=== PATIENT | male | born 1985 | race Caucasian/White ===

== ENCOUNTER 2019-03-07 11:18 | Emergency (ER) | payer MEDICAID ==
[~2019-03-07] VITALS: Ht 172.7 cm; Wt 64.9 kg
[2019-03-07 11:18] VITALS: BP 115/65
--- NOTE | 2019-03-07 11:18 | NUR ---
Pt [facility], placed in bed 11.
--- NOTE | 2019-03-07 11:40 | NUR ---
DR. UGALDE AT BEDSIDE EVALUATING PT
--- NOTE | 2019-03-07 11:40 | NUR ---
pt mary , found by a [place] on [address] with complaints of chest pain starting today, pressure, worse with palpaion, pt also c/o left upper arm pain, arm noted swollen, erythema, tender to palpation, states it started as a bug bite, denies drug use. per pt, pain at medial reguion of the chest, and at lft uper arm 10/10 at this time. temp 100.2, has nausea . denies any vomiting, diarrhea or chills. no sob. breathing even and non-labored. denies any medical hx, no known allergies. pt states to be homeless, live at the [facility]. er md assessing pt at the bedside. pt connected to monitor. will continue to monitor pt. hx denies
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
[2019-03-07] MEDS ORDERED: SULFAMETH/TRIMETH DS 800/160MG 1 TAB PO ONE (12:00)
[2019-03-07 12:05] VITALS: BP 115/65
--- NOTE | 2019-03-07 12:05 | NUR ---
Patient discharged with v/s stable. Written and verbal after care instructions given and explained. Patient alert, oriented and verbalized understanding of instructions. Ambulatory with steady gait. All questions addressed prior to discharge. ID band removed. Patient advised to follow up with PMD. Rx of BACTRIM AND IBUPROFEN given. Patient educated on indication of medication including possible reaction and side effects. Opportunity to ask questions provided and answered.
--- NOTE | 2019-03-07 12:05 | NUR ---
IV PLACED BY EMS WAS D/C PRIOR TO PT DISCHARGE. CATHETER INTACT.
== END 2019-03-07 12:05 | disposition home or self-care (01) ==
LOC: MED 11:18
DX: L03.114 Cellulitis of left upper limb (principal); R07.81 Pleurodynia; R50.9 Fever, unspecified; F12.10 Cannabis abuse, uncomplicated; Z59.0 Homelessness
CPT/HCPCS: 93005; 99283